=== PATIENT | male | born 1955 | race Caucasian/White ===

== ENCOUNTER 2021-08-24 13:51 | Day surgery (SDC) | payer MEDICARE ==
[~2021-08-24] VITALS: Ht 182.9 cm; Wt 123.4 kg
[2021-08-24] MEDS ORDERED: METO1TAB7 PO (14:04)
[2021-08-24] MEDS ORDERED: SPIR-10 PO (14:04)
[2021-08-24] MEDS ORDERED: FURO40TA2 PO (14:04)
[2021-08-24] MEDS ORDERED: FINA5TAB2 PO (14:04)
[2021-08-24] MEDS ORDERED: LISI10TA22 PO (14:04)
[2021-08-24] MEDS ORDERED: WARF4TAB52 PO (14:04)
[2021-08-24] MEDS ORDERED: TAMS1CAP17 PO (14:04)
[2021-08-24] MEDS ORDERED: NITR-67 PO (14:04)
[2021-08-24] MEDS ORDERED: LIDOCAINE 2% 100MG/5ML SDV (FOR ANES.) As Ordered ONE (14:10)
[2021-08-24] MEDS ORDERED: propofoL 200 MG/20 ML VIAL As Ordered ONE (14:10)
[2021-08-24] MEDS ORDERED: LIDOCAINE 1% SDV 30ML VIAL As Ordered ONE (14:32)
[2021-08-24] MEDS ORDERED: ceFAZolin 1GM VIAL (J0690 PER 500MG) As Ordered ONE (15:15)
[2021-08-24 15:35] VITALS: BP 123/68
== END 2021-08-24 15:45 | disposition home or self-care (01) ==
LOC: M SDC 13:51
PROVIDERS: ATTEND Internal Medicine Cardiovascular Disease
DX: Z45.09 Encounter for adjustment and management of other cardiac device (principal); I50.32 Chronic diastolic (congestive) heart failure; I48.21 Permanent atrial fibrillation; Z79.01 Long term (current) use of anticoagulants; R94.31 Abnormal electrocardiogram [ECG] [EKG]; E66.9 Obesity, unspecified; I11.9 Hypertensive heart disease without heart failure
CPT/HCPCS: 33286; J0690